=== PATIENT | female | born 1960 | race Caucasian/White ===

== ENCOUNTER 2022-10-25 15:42 | Inpatient (IN) | payer OTHER, MEDICAID ==
[~2022-10-25] VITALS: Ht 172.7 cm; Wt 136.1 kg
[2022-10-25 15:50] VITALS: BP 160/79
--- NOTE | 2022-10-25 15:58 | NUR ---
PT WAS B/B AMBULANCE AND PUT ON ROOM 1. DR. OSBORN ASSESSED PT STAT.
[2022-10-25] MEDS ORDERED: ALBUTEROL SULFATE/IPRATROPIU 3 ML SOL IH ONE ×2 (16:00)
[2022-10-25] MEDS ORDERED: methylPREDNISolone SS 125 MG/2 ML VIAL IVP ONE (16:00)
--- NOTE | 2022-10-25 16:20 | NUR ---
PT WAS MONITOR ON. SOLUMEDROL GIVE IVP.
[2022-10-25 17:04] LABS: BASOPHILS # (AUTO) 0.1 K/uL (0.00-0.22); BASOPHILS % (AUTO) 0.7 % (0.0-2.0); EOSINOPHILS # (AUTO) 0.2 K/uL (0-0.4); EOSINOPHILS % (AUTO) 2.1 % (0.0-4.0); HEMATOCRIT 36.8 % (36-48); LYMPHOCYTES # (AUTO) 4.1 K/uL (2.5-16.5); LYMPHOCYTES % (AUTO) 42.4 % (20.5-51.1); MEAN CORPUSCULAR HEMOGLOBIN 30 pg (27-31); MEAN CORPUSCULAR HGB CONC 33 g/dL (33-37); MEAN CORPUSCULAR VOLUME 92.6 fL (80-94); MONOCYTES # (AUTO) 0.6 K/uL (0.8-1.0); MONOCYTES % (AUTO) 5.8 % (1.7-9.3); NEUTROPHILS # (AUTO) 4.8 K/uL (1.8-7.7); PLATELET COUNT (AUTO) 248 K/uL (140-450); RED BLOOD CELL COUNT(AUTO) 3.97 MIL/uL (4.20-5.40); RED CELL DISTRIBUTION WIDTH 13.8 % (11.6-13.7); WHITE BLOOD COUNT (AUTO) 9.7 K/uL (4.8-10.8)
[2022-10-25 17:41] LABS: PHOSPHORUS 3.8 mg/dL (2.5-4.9)
[2022-10-25 17:46] LABS: ANION GAP 8.7 (8-16); CREATININE 1.1 mg/dL (0.6-1.3); POTASSIUM 4.3 mmol/L (3.5-5.1)
[2022-10-25 17:55] LABS: CARBON DIOXIDE 41.6 mmol/L (21-32)
[2022-10-25] MEDS ORDERED: ALBUTEROL 0.083% 2.5 MG/3 ML NEBU INH ONE (17:55)
--- NOTE | 2022-10-25 18:01 | NUR ---
LAB REPORTED CO2 41.6, GLUCOS 290. DR. LUKE NOTIFIED BEDISE.
[2022-10-25] MEDS ORDERED: HYDROcodone/APAP 5/325 MG 1 TAB TAB PO PRN (23:00)
[2022-10-25] MEDS ORDERED: POTASSIUM CHLORIDE 10 MEQ TABER PO PRN (23:00)
[2022-10-25] MEDS ORDERED: SODIUM PHOS / POTASSIUM PHOS 1 PKT PDR PO PRN (23:00)
[2022-10-25] MEDS ORDERED: DOCUSATE SODIUM 100 MG GELCAP PO PRN (23:00)
[2022-10-25] MEDS ORDERED: ACETAMINOPHEN 325 MG TAB PO PRN (23:00)
[2022-10-25] MEDS ORDERED: guaiFENesin 20 MG/ML UDC PO PRN (23:00)
[2022-10-25] MEDS ORDERED: ONDANSETRON 4 MG/2 ML VIAL IM/IVP PRN (23:00)
[2022-10-25] MEDS ORDERED: MAGNESIUM OXIDE 400 MG TAB PO PRN (23:00)
[2022-10-25] MEDS ORDERED: MORPHINE SULFATE 2 MG/ML SYR IVP PRN (23:00)
[2022-10-25] MEDS ORDERED: AZITHROMYCIN 250 MG TAB PO ONE (23:30)
[2022-10-26] MEDS ORDERED: AZITHROMYCIN 250 MG TAB ONE (02:32)
[2022-10-26] MEDS ORDERED: cefTRIAXone 1,000 MG VIAL ONE (02:32)
[2022-10-26] MEDS ORDERED: ACETAMINOPHEN (03:15)
[2022-10-26] MEDS ORDERED: NITR0.4T1 (03:15)
[2022-10-26] MEDS ORDERED: DEPAKOTE (03:15)
[2022-10-26] MEDS ORDERED: ATORVASTATIN (03:15)
[2022-10-26] MEDS ORDERED: HUMALOG KWIK PEN (03:15)
[2022-10-26] MEDS ORDERED: ALBUTEROL SULFATE (03:15)
[2022-10-26] MEDS ORDERED: LOSA25TA43 (03:15)
[2022-10-26] MEDS ORDERED: MELATONIN (03:15)
[2022-10-26] MEDS ORDERED: ONDANSETRON (03:15)
[2022-10-26] MEDS ORDERED: LEVOTHYROXINE (03:15)
[2022-10-26] MEDS ORDERED: TRAZ-343 (03:15)
[2022-10-26] MEDS ORDERED: INSU100I47 (03:15)
[2022-10-26] MEDS ORDERED: LURA60TA (03:15)
[2022-10-26] MEDS ORDERED: PREG50CA88 (03:15)
[2022-10-26] MEDS ORDERED: LIDOCAINE PATCH (03:15)
[2022-10-26] MEDS: methylPREDNISolone SS 40 MG/ML VIAL IVP SCH ×2 (05:01→21:06)
--- NOTE | 2022-10-26 07:05 | NUR ---
PT RECEIVED, CARE ASSUMED. PT LAYING IN BED ASLEEP. NOTED V/S. NO ACUTE DISTRESS NOTED. WILL CONTINUE TO MONITOR
--- NOTE | 2022-10-26 07:16 | NUR ---
Pt report given to CALLIE WILKINS. Transfer of care at this time.
--- NOTE | 2022-10-26 07:36 | NUR ---
LAB INFORMED ME OF GLUCOSE : 559. MADE DR BARCENAS AWARE. I WAS TOLD TO CONTACT DR LUKE
--- NOTE | 2022-10-26 07:40 | NUR ---
TEXT DR LUKE.
[2022-10-26 07:49] LABS: BASOPHILS % (AUTO) 0.2 % (0.0-2.0); HEMATOCRIT 35.4 % (36-48); HEMOGLOBIN 11.7 g/dL (12.0-16.0); LYMPHOCYTES # (AUTO) 1.2 K/uL (2.5-16.5); LYMPHOCYTES % (AUTO) 11.6 % (20.5-51.1); MEAN CORPUSCULAR HEMOGLOBIN 30 pg (27-31); MEAN CORPUSCULAR HGB CONC 33 g/dL (33-37); MEAN CORPUSCULAR VOLUME 91.2 fL (80-94); MONOCYTES # (AUTO) 0.1 K/uL (0.8-1.0); MONOCYTES % (AUTO) 1.1 % (1.7-9.3); NEUTROPHILS # (AUTO) 9.3 K/uL (1.8-7.7); NEUTROPHILS % (AUTO) 87.1 % (42.2-75.2); PLATELET COUNT (AUTO) 249 K/uL (140-450); RED BLOOD CELL COUNT(AUTO) 3.88 MIL/uL (4.20-5.40); RED CELL DISTRIBUTION WIDTH 13.6 % (11.6-13.7); WHITE BLOOD COUNT (AUTO) 10.7 K/uL (4.8-10.8)
[2022-10-26 08:18] LABS: ANION GAP 11.3 (8-16); CARBON DIOXIDE 38.6 mmol/L (21-32); CREATININE 1.4 mg/dL (0.6-1.3); POTASSIUM 4.9 mmol/L (3.5-5.1)
--- NOTE | 2022-10-26 09:00 | NUR ---
INFORMED TO ORDER INSULIN 12 UNITS IVP. MEDICATIONS ORDERED AND GIVEN
[2022-10-26] MEDS ORDERED: INSULIN REGULAR, HUMAN 100 UNIT/ML VIAL IVP ONE (09:15)
[2022-10-26] MEDS: AZITHROMYCIN 250 MG TAB PO SCH (09:32)
[2022-10-26] MEDS: LORATADINE 10 MG TAB PO SCH (09:32)
[2022-10-26] MEDS: PANTOPRAZOLE 40 MG TABEC PO SCH (09:32)
[2022-10-26] MEDS: MONTELUKAST SODIUM 10 MG TAB PO SCH (09:32)
--- NOTE | 2022-10-26 15:24 | NUR ---
PATIENT HAS BEEN SCREENED AND CATEGORIZED MODERATE NUTRITION RISK. PATIENT WILL BE SEEN WITHIN 3-5 DAYS OF ADMISSION. 10/28/[address]
[2022-10-26] MEDS ORDERED: hydrALAZINE 20 MG/ML VIAL IVP PRN (15:25)
[2022-10-26] MEDS ORDERED: MELATONIN 3 MG TAB PO PRN (15:25)
--- NOTE | 2022-10-26 17:00 | NUR ---
PT LAYING IN BED ANXIOUS. INFUSED NS 0.9 1 LITER. NOTED: PT HAS CANDY, SNACKS IN ROOM. INFORMED PT NOT TO EAT CANDY DUE TO HER DIABETES. PT SEEMS NON COMPLIANT. WILL CONTINUE TO MONITOR
[2022-10-26] MEDS: ALBUTEROL SULFATE/IPRATROPIU 3 ML SOL IH SCH ×2 (17:07→21:50)
--- NOTE | 2022-10-26 18:10 | NUR ---
BLOOD SUGAR 433. INFORMED DR LUKE OF BLOOD SUGAR. WILL WAIT FOR REPLY.
--- NOTE | 2022-10-26 19:15 | NUR ---
RECVD PATIENT ALERT AWAKE, ORIENTED AMBULATORY.
[2022-10-26] MEDS: ATORVASTATIN 20 MG TAB PO SCH (21:07)
[2022-10-26] MEDS: DIVALPROEX 500 MG TABEC PO SCH (21:07)
--- NOTE | 2022-10-26 21:30 | NUR ---
ACCU CHECK 569 MG /DL DR. LUKE NOTED, TO GIVE LANTUS 45UNITS SUB CUTANEOUS 2 TIMES ADAY
[2022-10-27] MEDS ORDERED: cefTRIAXone 1,000 MG VIAL ONE (00:42)
--- NOTE | 2022-10-27 01:58 | NUR ---
ACCU CHECK DONE, READS HI. DR. BARNARD NOTED AND DO HUMULOG SLIDING SCALE.
--- NOTE | 2022-10-27 02:25 | NUR ---
DR. BARNARD RESPONDED TO GIVE 20 UNITS OF HUMALOG, GIVEN , TO CHECK, IN AN HOUR TIME
[2022-10-27] MEDS: ALBUTEROL SULFATE/IPRATROPIU 3 ML SOL IH PRN ×2 (02:58→09:42)
[2022-10-27] MEDS: methylPREDNISolone SS 40 MG/ML VIAL IVP SCH ×3 (05:17→20:56)
--- NOTE | 2022-10-27 05:30 | NUR ---
ACCU CHECK 505 MG/DL NOTED BY DR. BARNARD WITH ORDER AND CARRIED OUT,
[2022-10-27] MEDS ORDERED: LEVOTHYROXINE 0.1 MG TAB ONE (06:16)
[2022-10-27] MEDS: LEVOTHYROXINE 0.075 MG TAB PO SCH (06:22)
[2022-10-27 06:41] LABS: ALBUMIN 3.1 g/dL (3.4-5.0); ANION GAP 13.3 (8-16); CARBON DIOXIDE 35.1 mmol/L (21-32); CREATININE 1.5 mg/dL (0.6-1.3); POTASSIUM 4.4 mmol/L (3.5-5.1); TOTAL BILIRUBIN 0.2 mg/dL (0.0-1.0)
--- NOTE | 2022-10-27 06:46 | NUR ---
CRITICAL VALUE , GLUCOSE 593 MG/DL,TEXTED TO DR. BARNARD
[2022-10-27 06:49] LABS: BASOPHILS % (AUTO) 0.1 % (0.0-2.0); HEMATOCRIT 34.9 % (36-48); HEMOGLOBIN 11.3 g/dL (12.0-16.0); LYMPHOCYTES % (AUTO) 9.5 % (20.5-51.1); MEAN CORPUSCULAR HEMOGLOBIN 30 pg (27-31); MEAN CORPUSCULAR HGB CONC 32 g/dL (33-37); MEAN CORPUSCULAR VOLUME 93.2 fL (80-94); MONOCYTES # (AUTO) 0.6 K/uL (0.8-1.0); NEUTROPHILS # (AUTO) 18.5 K/uL (1.8-7.7); NEUTROPHILS % (AUTO) 87.4 % (42.2-75.2); PLATELET COUNT (AUTO) 288 K/uL (140-450); RED BLOOD CELL COUNT(AUTO) 3.74 MIL/uL (4.20-5.40); RED CELL DISTRIBUTION WIDTH 13.9 % (11.6-13.7)
[2022-10-27] MEDS: ALBUTEROL SULFATE/IPRATROPIU 3 ML SOL IH SCH ×3 (07:00→19:20)
--- NOTE | 2022-10-27 07:05 | NUR ---
PT RECEIVED, CARE ASSUMED FROM MAID CLEANING COOKING ALYSON. ALYSON INFORMED ME THAT DR. INTERIANO ORDERED REGULAR INSULIN IVP. ALYSON LEDESMA WILL ORDER AND ADMINISTER MEDS. PT STABLE AT THIS TIME. WILL CONTINUE TO MONITOR
--- NOTE | 2022-10-27 07:10 | NUR ---
PT RECEIVED, CARE ASSUMED. PT LAYING IN BED ANXIOUS. UPDATED ALL TESTS AND PROCEDURES. WILL CONTINUE TO MONITOR
[2022-10-27 07:12] LABS: WHITE BLOOD COUNT (AUTO) 21.2 K/uL (4.8-10.8)
--- NOTE | 2022-10-27 07:20 | NUR ---
RESULTS BACK AND NOTED BY DR. BARNARD, WITH ORDERS
--- NOTE | 2022-10-27 07:26 | NUR ---
REPORT GIVEN TO FRANKY LEDESMA, TRANSFER OF CARE AT THIS TIME
--- NOTE | 2022-10-27 08:40 | NUR ---
Patient will be admitted to care of KEISHA. Admited to 112A. Will go to room. Belongings list completed. Report to .
--- NOTE | 2022-10-27 08:40 | NUR ---
PT TRANSPORTED TO UNIT VIA GURNEY. RECEIVED REPORT FROM ED NURSE FRANKY FOR CONTINUITY OF CARE. PT IN STABLE CONDITION. PT A/OX4, BREATHING EVEN, REGULAR, AND UNLABORED ON 2L VIA NASAL CANNULA. PT HAS EXERTIONAL SOB AFTER AMBULATING. PT IS CONTINENT OF THE BOWELS AND BLADDER, AND AMBULATORY WITHOUT ASSIST. SKIN IS INTACT. NO PAIN OR DISTRESS NOTED AT THIS TIME. ASKED ED NURSE ABOUT CRITICAL BLOOD SUGAR 593, AND INTERVENTIONS. PER ED NURSE, LAST DOSE OF INSULIN HUMALOG WAS GIVEN AT 0225, REPORTEDLY 25 UNITS. NOTHING WAS GIVEN THIS MORNING. NOTIFIED .
[2022-10-27] MEDS ORDERED: INSULIN LANTUS 100 UNITS/ML 10 ML VIAL SUBQ SCH (09:00)
--- NOTE | 2022-10-27 09:12 | NUR ---
ED [employer] [employer] ADDED ASSESSOR VALERIA CALLED CONCERNING PT'S CRITICAL BLOOD SUGAR AND LACK OF INSULIN COVERAGE. VALERIA RN REPORTED NO DOCUMENTATION ON MAR, BUT DOCUMENTATION VIA NOTES FROM [facility] NURSE. DR. BARNARD NOTIFIED.
--- NOTE | 2022-10-27 09:12 | NUR ---
AFTER TRANSFERRING PT, RECEIVED QUESTIONS FROM [facility] NURSE REGARDING INSULIN COVERAGE/INSULIN GIVEN. PT HAD CRITICAL HIGH BLOOD SUGAR DURING KEYLIN[facility]. PER [facility] NURSE DURING VERBAL HANDOFF REPORT, SHE NOTIFIED DR BARNARD, RECEIVED ORDERS AND CARRIED THEM OUT. NO ORDERS WERE PLACED AND INSULIN COVERAGE WAS NOT DOCUMENTED IN THE eMAR. ACCUCHECK NOTE/NOTES STATES 20 UNITS OF HUMALOG WERE GIVEN AT 0225. DR BARNARD NOTIFIED. KEISHA [facility] RECEIVING NURSE NOTIFIED.
--- NOTE | 2022-10-27 09:20 | NUR ---
PT IS REFUSING ABG AT THIS TIME. RN NOTIFIED. NO SOB OR RESPIRATORY DISTRESS NOTED. WILL TRY AGAIN AT A LATER TIME.
[2022-10-27] MEDS ORDERED: INSULIN LISPRO 100 UNITS/ML VIAL SUBQ SCH ×2 (09:30→14:35)
--- NOTE | 2022-10-27 09:37 | NUR ---
REASSESSED PT'S FINGERSTICK GLUCOSE. GLUCOMETER READ >600. NOTIFIED DR. BARNARD, NEW ORDER FOR ONE TIME DOSE OF 20 UNITS HUMALOG INSULIN TO BE GIVEN NOW ALONG WITH SCHEDULED 45 UNITS OF LANTUS.
[2022-10-27] MEDS: PANTOPRAZOLE 40 MG TABEC PO SCH (09:40)
[2022-10-27] MEDS: MONTELUKAST SODIUM 10 MG TAB PO SCH (09:40)
[2022-10-27] MEDS: DIVALPROEX 500 MG TABEC PO SCH ×2 (09:40→20:57)
[2022-10-27] MEDS: AZITHROMYCIN 250 MG TAB PO SCH (09:41)
[2022-10-27] MEDS: LOSARTAN 25 MG TAB PO SCH (09:41)
[2022-10-27] MEDS: LORATADINE 10 MG TAB PO SCH (09:41)
[2022-10-27] MEDS: INSULIN LANTUS 100 UNITS/ML 10 ML VIAL SUBQ SCH ×2 (09:45→20:55)
--- NOTE | 2022-10-27 10:50 | NUR ---
REASSESSED PT'S FINGERSTICK, GLUCOSE STILL >600. ORDERED REPEAT CMP TO ASSESS ANION GAP FOR POSSIBLE DKA. ORDER PLACED, NOTIFIED LAB FOR NEW DRAW.
--- NOTE | 2022-10-27 12:00 | NUR ---
PT VISUALLY ASSESSED, NO SIGNS OF PAIN OR DISTRESS NOTED AT THIS TIME.
--- NOTE | 2022-10-27 13:30 | NUR ---
CMP RELEASED, NEW GLUCOSE READING AT 567, ANION GAP DOWNTRENDED FROM 13.3 TO 12.9. ADDITIONAL 15 UNITS OF HUMALOG ORDERED TO BE GIVEN WITH 10 UNITS PER SLIDING SCALE. ACCUCHECKS CHANGED TO Q4HRS.
[2022-10-27 14:12] LABS: ALBUMIN 2.7 g/dL (3.4-5.0); ANION GAP 12.9 (8-16); CARBON DIOXIDE 33.8 mmol/L (21-32); CREATININE 1.7 mg/dL (0.6-1.3); POTASSIUM 4.7 mmol/L (3.5-5.1); TOTAL BILIRUBIN 0.1 mg/dL (0.0-1.0)
[2022-10-27] MEDS: INSULIN LISPRO SLIDING SCALE 100 UNITS/ML VIAL SUBQ PRN ×3 (14:41→20:53)
--- NOTE | 2022-10-27 15:00 | NUR ---
PT VISUALLY ASSESSED, NO SIGNS OF PAIN OR DISTRESS NOTED AT THIS TIME.
--- NOTE | 2022-10-27 16:00 | NUR ---
REASSESSED PT'S FINGERSTICK GLUCOSE, NEW READING 458. NOTIFIED DR. BARNARD, ADDITIONAL 5 UNITS OF HUMALOG ORDERED TO BE GIVEN WITH 10 UNITS OF HUMALOG PER SLIDING SCALE.
[2022-10-27] MEDS: BLOOD GLUCOSE MONITORING 1 DEV DEV FS SCH ×2 (16:08→20:57)
[2022-10-27] MEDS ORDERED: BLOOD GLUCOSE MONITORING 1 DEV DEV FS SCH (16:30)
--- NOTE | 2022-10-27 18:00 | NUR ---
PT VISUALLY ASSESSED, NO SIGNS OF PAIN OR DISTRESS NOTED AT THIS TIME.
--- NOTE | 2022-10-27 19:20 | NUR ---
ENDORSED PT TO [facility] NURSE MAJOR FOR CONTINUITY OF CARE. PT IN STABLE CONDITION.
--- NOTE | 2022-10-27 19:25 | NUR ---
RECEIVED REPORT FROM DAY SHIFT CALLIE WELLS FOR CONTINUITY OF CARE. PT IS AAOX4 ON NC 2L. PT NOT IN AN RESPIRATORY DISTRESS. PT HAS LEFT HAND 20 GAUGE SALINE LOCK. PT RESTING IN BED. CALL LIGHT WITHIN REACH. WILL CONTINUE TO MONITOR THE PT.
--- NOTE | 2022-10-27 19:30 | NUR ---
PT DID NOT GET BREATHING TX, PT REFUSED TX WANTED TO GO BACK TO SLEEP.
[2022-10-27 20:00] VITALS: BP 114/57
[2022-10-27] MEDS: ATORVASTATIN 20 MG TAB PO SCH (20:56)
--- NOTE | 2022-10-27 21:03 | NUR ---
SCHEDULE MEDICATIONS GIVEN. NO ADVERSE REACTION NOTED. WILL CONTINUE TO MONITOR THE PT.
[2022-10-28] VITALS: BP 101/44
[2022-10-28] MEDS: INSULIN LISPRO SLIDING SCALE 100 UNITS/ML VIAL SUBQ PRN ×7 (00:23→20:48)
--- NOTE | 2022-10-28 00:30 | NUR ---
OBSERVED PT. PT IS SLEEPING. PT NOT IN ANY ACUTE DISTRESS. VISIBLE RISE AND CHEST FALL. WILL CONTINUE TO MONITOR THE PT.
[2022-10-28] MEDS: BLOOD GLUCOSE MONITORING 1 DEV DEV FS SCH ×6 (00:35→20:45)
--- NOTE | 2022-10-28 02:45 | NUR ---
OBSERVED PT. PT IS SLEEPING. PT NOT IN ANY ACUTE DISTRESS. VISIBLE RISE AND CHEST FALL. WILL CONTINUE TO MONITOR THE PT.
[2022-10-28 04:00] VITALS: BP 119/72
--- NOTE | 2022-10-28 04:50 | NUR ---
PT BLOOD GLUCOSE OF 320. COVERED WITH 8 UNITS OF INSULIN.
[2022-10-28] MEDS: methylPREDNISolone SS 40 MG/ML VIAL IVP SCH ×3 (05:40→22:04)
[2022-10-28] MEDS: LEVOTHYROXINE 0.075 MG TAB PO SCH (05:40)
--- NOTE | 2022-10-28 05:50 | NUR ---
SCHEDULE SOLU-MEDROL GIVEN. PT STATES SHE VOIDED ONCE AND HAD 1 BM YESTERDAY. PT AMBULATED TO THE RESTROOM INDEPENDENTLY. CALL LIGHT WITHIN REACH. WILL CONTINUE TO MONITOR THE PT.
[2022-10-28] MEDS: ALBUTEROL SULFATE/IPRATROPIU 3 ML SOL IH SCH ×3 (07:10→19:37)
--- NOTE | 2022-10-28 07:15 | NUR ---
ENDORSED PT TO [facility] NURSE REICH FOR CONTINUITY OF CARE. PT IN STABLE CONDITION. Addendum: 10/28/22 at 1935 by Irasema Vogt RN ENTERED TIME INCORRECTLY.
--- NOTE | 2022-10-28 07:15 | NUR ---
ENDORSED PT TO DAY SHIFT RN FOR CONTINUITY OF CARE. PT IS STABLE.
--- NOTE | 2022-10-28 07:15 | NUR ---
RECEIVED REPORT FROM [facility] MAJOR FOR CONTINUITY OF CARE. PT IS CURRENTLY SLEEPING, A/OX4. BREATHING IS EVEN, REGULAR, AND UNLABORED ON 2L VIA NASAL CANNULA. PT IS CONTINENT OF THE BOWEL AND BLADDER, AND AMBULATORY WITHOUT ASSISTANCE. PT'S SKIN IS INTACT. PER [facility], GLUCOSE LEVELS WERE REPORTED DOWNTRENDING. NO SIGNS OF PAIN OR DISTRESS NOTED AT THIS TIME.
[2022-10-28 07:24] LABS: ANION GAP 9.2 (8-16); CARBON DIOXIDE 39.4 mmol/L (21-32); POTASSIUM 4.6 mmol/L (3.5-5.1)
[2022-10-28 07:28] LABS: BASOPHILS % (AUTO) 0.2 % (0.0-2.0); HEMOGLOBIN 11.2 g/dL (12.0-16.0); LYMPHOCYTES # (AUTO) 2.3 K/uL (2.5-16.5); LYMPHOCYTES % (AUTO) 12.5 % (20.5-51.1); MEAN CORPUSCULAR HEMOGLOBIN 30 pg (27-31); MEAN CORPUSCULAR HGB CONC 33 g/dL (33-37); MEAN CORPUSCULAR VOLUME 92.1 fL (80-94); MONOCYTES # (AUTO) 0.5 K/uL (0.8-1.0); MONOCYTES % (AUTO) 2.6 % (1.7-9.3); NEUTROPHILS # (AUTO) 15.9 K/uL (1.8-7.7); NEUTROPHILS % (AUTO) 84.7 % (42.2-75.2); PLATELET COUNT (AUTO) 285 K/uL (140-450); RED BLOOD CELL COUNT(AUTO) 3.69 MIL/uL (4.20-5.40); RED CELL DISTRIBUTION WIDTH 13.9 % (11.6-13.7); WHITE BLOOD COUNT (AUTO) 18.8 K/uL (4.8-10.8)
[2022-10-28 08:00] VITALS: BP 137/59
[2022-10-28] MEDS: LORATADINE 10 MG TAB PO SCH (08:44)
[2022-10-28] MEDS: PANTOPRAZOLE 40 MG TABEC PO SCH (08:44)
[2022-10-28] MEDS: MONTELUKAST SODIUM 10 MG TAB PO SCH (08:44)
[2022-10-28] MEDS: DIVALPROEX 500 MG TABEC PO SCH ×2 (08:45→21:42)
[2022-10-28] MEDS: AZITHROMYCIN 250 MG TAB PO SCH (08:45)
--- NOTE | 2022-10-28 08:45 | NUR ---
PT DID NOT HAVE NASAL CANNULA IN PLACE AND CURRENTLY SLEEPING. ON ROOM AIR, PT SPO2 READ AT 81%. PLACED NASAL CANNULA, PT SPO2 RETURNED TO 94%. ASKED PT WHY SHE HAD HER O2 OFF, SHE STATED THE RT TOOK IT OFF AND SAID IT WAS OKAY TO KEEP IT OFF. PT HAS HX OF HOME O2 USE.
[2022-10-28] MEDS: LOSARTAN 25 MG TAB PO SCH (08:46)
[2022-10-28] MEDS: INSULIN LANTUS 100 UNITS/ML 10 ML VIAL SUBQ SCH ×2 (08:48→21:43)
--- NOTE | 2022-10-28 10:00 | NUR ---
VISUALLY ASSESSED PT, NO SIGNS OF PAIN OR DISTRESS NOTED AT THIS TIME.
[2022-10-28 12:00] VITALS: BP 133/59
--- NOTE | 2022-10-28 12:44 | NUR ---
NOTIFIED DR. BARNARD ABOUT CRITICAL GLUCOSE FROM 1200 ACCUCHECK 472. GAVE 10 UNITS PER SLIDING SCALE. AWAITING ADDITIONAL ORDERS.
[2022-10-28] MEDS ORDERED: INSULIN LISPRO 100 UNITS/ML VIAL SUBQ SCH (14:00)
--- NOTE | 2022-10-28 14:00 | NUR ---
VISUALLY ASSESSED PT, NO SIGNS OF PAIN OR DISTRESS NOTED AT THIS TIME.
--- NOTE | 2022-10-28 14:10 | NUR ---
NEW ORDERS FOR ONE TIME DOSE OF 15 UNITS OF HUMALOG TO BE GIVEN. REASSESSED FINGERSTICK GLUCOSE, NOW READING AT 431. GAVE 15 UNITS ORDERED.
[2022-10-28 16:00] VITALS: BP 126/66
--- NOTE | 2022-10-28 16:00 | NUR ---
VISUALLY ASSESSED PT, NO SIGNS OF PAIN OR DISTRESS NOTED AT THIS TIME.
--- NOTE | 2022-10-28 18:00 | NUR ---
VISUALLY ASSESSED PT, NO SIGNS OF PAIN OR DISTRESS NOTED AT THIS TIME.
--- NOTE | 2022-10-28 19:07 | NUR ---
ENDORSED PT TO [facility] NURSE DAMIR FOR CONTINUITY OF CARE. PT IN STABLE CONDITION.
--- NOTE | 2022-10-28 19:08 | NUR ---
RECEIVED REPORT FROM DAY SHIFT NURSE NAYE FOR CONTINUITY OF CARE. PT AWAKE IN BED. A&O4, ABLE TO MAKE NEEDS KNOWN. RESPIRATIONS EVEN AND UNLABORED ON 2L NC. NO DISTRESS NOTED. NO COMPLAINTS OF PAIN. SKIN IS INTACT, WARM AND DRY TO TOUCH. CONTINENT TO BOWEL AND BLADDER, CAN GO TO THE REST ROOM WITHOUT ASSIST. BLOOD GLUCOSE CHECK Q4, LAST BG AT 340'S. CALL LIGHT WITHIN REACH. SAFETY PRECAUTIONS IN PLACE.
[2022-10-28 20:00] VITALS: BP 122/53
--- NOTE | 2022-10-28 20:45 | NUR ---
SLIDING SCALE INSULIN ADMINISTERED FOR BS 344.
[2022-10-28] MEDS: ATORVASTATIN 20 MG TAB PO SCH (21:41)
--- NOTE | 2022-10-28 21:43 | NUR ---
DUE MEDS ADMINISTERED. PT TEACHING ABOUT MEDS GIVEN. PT VERBALIZED UNDERSTANDING.
--- NOTE | 2022-10-28 22:04 | NUR ---
SCHEDULED IV MED GIVEN BY CALLIE KEATING. PT TOLERATED WELL.
[2022-10-29] MEDS: BLOOD GLUCOSE MONITORING 1 DEV DEV FS SCH ×6 (00:56→20:39)
--- NOTE | 2022-10-29 00:56 | NUR ---
BLOOD SUGAR CHECK DONE. SLIDING SCALE INSULIN ADMINISTERED. SPUTUM SPECIMEN COLLECTED AND SENT TO LAB.
[2022-10-29] MEDS: INSULIN LISPRO SLIDING SCALE 100 UNITS/ML VIAL SUBQ PRN ×6 (00:57→20:41)
--- NOTE | 2022-10-29 01:11 | NUR ---
IV ABX ADMINISTERED BY CALLIE KEATING. NO ADVERSE REACTION NOTED.
[2022-10-29 01:54] LABS: APPEARANCE,URINE CLEAR (CLEAR); BILIRUBIN,URINE NEGATIVE (NEGATIVE); BLOOD, URINE NEGATIVE (NEGATIVE); COLOR,URINE YELLOW (YELLOW); LEUKOCYTE ESTERASE ,URINE NEGATIVE (NEGATIVE); NITRITE, URINE NEGATIVE (NEGATIVE); UGLUCOSE 3+ (NEGATIVE)
[2022-10-29 04:00] VITALS: BP 125/54
[2022-10-29] MEDS: methylPREDNISolone SS 40 MG/ML VIAL IVP SCH ×3 (05:20→21:00)
--- NOTE | 2022-10-29 06:05 | NUR ---
CLEANED AND CHANGED PT DIAPER. HAD BM. PT TOLERATED WELL. PT REMAINED CLEAN AND DRY THROUGHOUT SHIFT. NO C/O OF PAIN. NO DISTRESS NOTED.
[2022-10-29] MEDS: LEVOTHYROXINE 0.075 MG TAB PO SCH (06:23)
[2022-10-29] MEDS: ALBUTEROL SULFATE/IPRATROPIU 3 ML SOL IH SCH ×2 (07:00→13:00)
--- NOTE | 2022-10-29 07:10 | NUR ---
ASSUMED CONTINUITY OF CARE. AWAKE, ALERT, AND ORIENTED X4. NO SOB, NOTED. KEEP COMFORTABLE ON BED. EXPLAINED DIAGNOSIS, PLAN OF CARE, PAIN MANAGEMENT TEACHING, USE OF CALL LIGHT/BED/TV/BATHROOM. VERBALIZED UNDERSTANDING. CALL LIGHT WITHIN REACH.
--- NOTE | 2022-10-29 07:27 | NUR ---
ENDORSED PT TO DAY SHIFT NURSE BRAYAN FOR CONTINUITY OF CARE. ALL NEEDS MET THROUGHOUT SHIFT. PT IS STABLE. Addendum: 10/29/22 at 0730 by Murtaza Gonzáles LVN ENDORSED TO DAY SHIFT NURSE REENA.
--- NOTE | 2022-10-29 07:27 | NUR ---
ENDORSED PT TO DAY SHIFT NURSE REENA FOR CONTINUITY OF CARE. ALL NEEDS MET THROUGHOUT SHIFT. PT IS STABLE.
[2022-10-29 08:00] VITALS: BP 146/64
--- NOTE | 2022-10-29 08:22 | NUR ---
PT EATING BREAKFAST - REFUSED NEB - WILL GIVE PRN LATER
[2022-10-29] MEDS: AZITHROMYCIN 250 MG TAB PO SCH (08:26)
[2022-10-29] MEDS: DIVALPROEX 500 MG TABEC PO SCH ×2 (08:26→21:36)
[2022-10-29] MEDS: PANTOPRAZOLE 40 MG TABEC PO SCH (08:26)
[2022-10-29] MEDS: MONTELUKAST SODIUM 10 MG TAB PO SCH (08:26)
[2022-10-29] MEDS: LOSARTAN 25 MG TAB PO SCH (08:26)
[2022-10-29] MEDS: LORATADINE 10 MG TAB PO SCH (08:27)
[2022-10-29] MEDS: INSULIN LANTUS 100 UNITS/ML 10 ML VIAL SUBQ SCH ×2 (08:31→21:41)
[2022-10-29 12:35] LABS: ANION GAP 10.4 (8-16); CARBON DIOXIDE 37.8 mmol/L (21-32); CREATININE 1.1 mg/dL (0.6-1.3); POTASSIUM 5.2 mmol/L (3.5-5.1)
[2022-10-29 12:40] LABS: BASOPHILS % (AUTO) 0.1 % (0.0-2.0); HEMATOCRIT 35.4 % (36-48); HEMOGLOBIN 11.7 g/dL (12.0-16.0); LYMPHOCYTES # (AUTO) 2.5 K/uL (2.5-16.5); LYMPHOCYTES % (AUTO) 17.5 % (20.5-51.1); MEAN CORPUSCULAR HEMOGLOBIN 30 pg (27-31); MEAN CORPUSCULAR HGB CONC 33 g/dL (33-37); MEAN CORPUSCULAR VOLUME 91.1 fL (80-94); MONOCYTES # (AUTO) 0.6 K/uL (0.8-1.0); NEUTROPHILS % (AUTO) 78.4 % (42.2-75.2); PLATELET COUNT (AUTO) 287 K/uL (140-450); RED BLOOD CELL COUNT(AUTO) 3.89 MIL/uL (4.20-5.40); RED CELL DISTRIBUTION WIDTH 14.3 % (11.6-13.7); WHITE BLOOD COUNT (AUTO) 14.1 K/uL (4.8-10.8)
--- NOTE | 2022-10-29 12:45 | NUR ---
WENT TO BATHROOM WITHOUT ASSISTANCE. TOLERATED WELL. NO SOB, NOTED. ASKED TO CALL NURSE IF NEEDS HELP. VERBALIZED UNDERSTANDING.
--- NOTE | 2022-10-29 13:28 | NUR ---
CALLED DR. BURNS AT INFORMED OF PT. LATEST LAB RESULTS K 5.2, AND WBC 14.1. ALSO VERIFIED D/C ORDER WITH DR. BURNS AND ACCORDING TO HER, D/C ORDER WAS ALREADY CANCELLED. GOT T.O. FOR HIGH K 5.2 READ BACK AND VERIFIED. INFORMED [facility] ABOUT MD LATEST MED ORDER AND CANCELLATION OF D/C ORDER.
[2022-10-29] MEDS ORDERED: SODIUM ZIRCONIUM CYCLOSILICATE 10 GM POWD.PACK PO SCH (13:32)
[2022-10-29 16:00] VITALS: BP 135/77
--- NOTE | 2022-10-29 19:20 | NUR ---
REPORT GIVEN TO [facility] NURSE. IN STABLE CONDITION.
--- NOTE | 2022-10-29 19:21 | NUR ---
RECEIVED REPORT FROM DAY SHIFT NURSE CARMEN FOR CONTINUITY OF CARE. PT AWAKE IN BED. A&O4, ABLE TO MAKE NEEDS KNOWN. AMBULATORY WITHOUT ASSIST. RESPIRATIONS EVEN AND UNLABORED ON 2L NC. NO DISTRESS NOTED. NO COMPLAINTS OF PAIN. SKIN IS INTACT, WARM AND DRY TO TOUCH. CONTINENT TO BOWEL AND BLADDER. BLOOD GLUCOSE CHECK Q4, LAST BG AT 320'S. CALL LIGHT WITHIN REACH. SAFETY PRECAUTIONS IN PLACE.
[2022-10-29 20:00] VITALS: BP 118/60
--- NOTE | 2022-10-29 20:41 | NUR ---
BLOOD SUGAR CHECK DONE. SLIDING SCALE INSULIN ADMINISTERED FOR BS 348. PT ASYMPTOMATIC. NO DISTRESS NOTED.
[2022-10-29] MEDS: ATORVASTATIN 20 MG TAB PO SCH (21:36)
--- NOTE | 2022-10-29 21:36 | NUR ---
ADMINISTERED DUE MEDS. PT TEACHING MADE. PT VERBALIZED UNDERSTANDING. PT TOLERATED WELL.
--- NOTE | 2022-10-29 22:03 | NUR ---
IV MED ADMINISTERED BY CALLIE CONTI. PT TOLERATED WELL.
[2022-10-30] MEDS: BLOOD GLUCOSE MONITORING 1 DEV DEV FS SCH ×3 (00:17→08:54)
[2022-10-30] MEDS: INSULIN LISPRO SLIDING SCALE 100 UNITS/ML VIAL SUBQ PRN ×2 (00:18→04:38)
--- NOTE | 2022-10-30 00:18 | NUR ---
SLIDING SCALE INSULIN ADMINISTERED FOR BS 350. CALLIE CONTI GAVE SCHEDULED IV ABX. NO ADVERSE REACTION NOTED.
[2022-10-30 04:00] VITALS: BP 120/53
--- NOTE | 2022-10-30 04:38 | NUR ---
SLIDING SCALE INSULIN ADMINISTERED FOR BS 288.
[2022-10-30] MEDS: methylPREDNISolone SS 40 MG/ML VIAL IVP SCH (05:00)
[2022-10-30] MEDS: LEVOTHYROXINE 0.075 MG TAB PO SCH (06:09)
[2022-10-30 06:58] LABS: ANION GAP 10.2 (8-16); CARBON DIOXIDE 38.7 mmol/L (21-32); POTASSIUM 4.9 mmol/L (3.5-5.1)
[2022-10-30 07:13] LABS: BASOPHILS % (AUTO) 0.3 % (0.0-2.0); EOSINOPHILS % (AUTO) 0.1 % (0.0-4.0); HEMATOCRIT 36.3 % (36-48); HEMOGLOBIN 12.1 g/dL (12.0-16.0); LYMPHOCYTES # (AUTO) 2.1 K/uL (2.5-16.5); LYMPHOCYTES % (AUTO) 19.6 % (20.5-51.1); MEAN CORPUSCULAR HEMOGLOBIN 30 pg (27-31); MEAN CORPUSCULAR HGB CONC 33 g/dL (33-37); MEAN CORPUSCULAR VOLUME 90.5 fL (80-94); MONOCYTES # (AUTO) 0.3 K/uL (0.8-1.0); MONOCYTES % (AUTO) 2.8 % (1.7-9.3); NEUTROPHILS # (AUTO) 8.4 K/uL (1.8-7.7); NEUTROPHILS % (AUTO) 77.2 % (42.2-75.2); PLATELET COUNT (AUTO) 289 K/uL (140-450); RED BLOOD CELL COUNT(AUTO) 4.01 MIL/uL (4.20-5.40); WHITE BLOOD COUNT (AUTO) 10.9 K/uL (4.8-10.8)
--- NOTE | 2022-10-30 07:20 | NUR ---
ENDORSED PT TO DAY SHIFT NURSE MAYCO FOR CONTINUITY OF CARE. ALL NEEDS MET THROUGHOUT SHIFT. PT IS STABLE.
[2022-10-30 08:00] VITALS: BP 125/49
[2022-10-30] MEDS: INSULIN LANTUS 100 UNITS/ML 10 ML VIAL SUBQ SCH (08:57)
[2022-10-30] MEDS ORDERED: predniSONE 20 MG TAB PO SCH (09:00)
[2022-10-30] MEDS: LORATADINE 10 MG TAB PO SCH (09:02)
[2022-10-30] MEDS: MONTELUKAST SODIUM 10 MG TAB PO SCH (09:02)
[2022-10-30] MEDS: DIVALPROEX 500 MG TABEC PO SCH (09:03)
[2022-10-30] MEDS: AZITHROMYCIN 250 MG TAB PO SCH (09:03)
[2022-10-30] MEDS: LOSARTAN 25 MG TAB PO SCH (09:04)
[2022-10-30] MEDS: PANTOPRAZOLE 40 MG TABEC PO SCH (09:05)
[2022-10-30] MEDS ORDERED: MONT10TA35 PO (09:13)
[2022-10-30] MEDS ORDERED: LEVO-481 PO (09:15)
[2022-10-30] MEDS ORDERED: PRED20TA5 PO (09:16)
[2022-10-30] MEDS ORDERED: ALBU0.0912 INH (09:17)
--- NOTE | 2022-10-30 12:34 | NUR ---
[facility] AND FRONT LOBBY CALL NURSE TO WHEEL PATIENT OUT. DISCHARGE INSTRUCTION GIVEN, DISCHARGE CONSENT SIGN, IV ACCESS & WRIST BAND REMOVED BEFORE PATIENT IS ABLE TO DRESS HERSELF AND GETTING READY TO BE WHEEL OUT. AT THE TIME OF DISCHARGE, PATIENT STABLE WITH NO ACUTE DISTRESS NOTED.
[2022-12-30] MEDS ORDERED: ONDA-188 PO (01:25)
[2022-12-30] MEDS ORDERED: ATOR20TA PO (01:25)
[2022-12-30] MEDS ORDERED: NITR0.4T2 SL (01:25)
[2022-12-30] MEDS ORDERED: MELA10TA21 PO (01:25)
[2022-12-30] MEDS ORDERED: LURA60TA PO (01:25)
[2022-12-30] MEDS ORDERED: LOSA100T1 PO (01:25)
[2022-12-30] MEDS ORDERED: INSU-1165 SQ (01:25)
[2022-12-30] MEDS ORDERED: DEXT-430 PO (01:25)
[2022-12-30] MEDS ORDERED: AZIT250T3 PO (01:25)
[2022-12-30] MEDS ORDERED: LEVO0.155 PO (01:25)
[2022-12-30] MEDS ORDERED: ACET-10509 PO (01:25)
[2022-12-30] MEDS ORDERED: DIVA500T1 PO (01:25)
[2022-12-30] MEDS ORDERED: NIRM1TAB PO (01:25)
[2022-12-30] MEDS ORDERED: TRAZ-343 PO (01:29)
[2022-12-30] MEDS ORDERED: INSU100I47 SQ (01:29)
[2022-12-30] MEDS ORDERED: PREG50CA88 PO (01:29)
[2023-01-03] MEDS ORDERED: GLYB5TAB14 PO (09:06)
[2023-01-03] MEDS ORDERED: PRON INH (09:06)
[2023-01-03] MEDS ORDERED: LANTUS SUBQ (09:06)
[2023-01-03] MEDS ORDERED: METF-346 PO (09:06)
[2023-01-03] MEDS ORDERED: METH4TAB1 PO (09:06)
[2023-01-03] MEDS ORDERED: ROC2I IV (12:18)
[2023-01-03] MEDS ORDERED: AZIT250T4 PO (12:18)
== END 2022-10-30 12:13 | disposition home or self-care (01) | DRG 871 ==
LOC: MED 15:42 → MTU 18:47
PROVIDERS: ADMIT Hospitalist; ATTEND Hospitalist
DX: A41.9 Sepsis, unspecified organism (principal); J18.9 Pneumonia, unspecified organism; J96.21 Acute and chronic respiratory failure with hypoxia; J96.22 Acute and chronic respiratory failure with hypercapnia; J44.1 Chronic obstructive pulmonary disease with (acute) exacerbation; N17.9 Acute kidney failure, unspecified; Z68.42 Body mass index [BMI] 45.0-49.9, adult; Z20.822 Contact with and (suspected) exposure to COVID-19; F17.200 Nicotine dependence, unspecified, uncomplicated; G47.00 Insomnia, unspecified; E78.5 Hyperlipidemia, unspecified; E03.9 Hypothyroidism, unspecified; E66.01 Morbid (severe) obesity due to excess calories; I12.9 Hypertensive chronic kidney disease with stage 1 through stage 4 chronic kidney disease, or unspecified chronic kidney disease; D72.829 Elevated white blood cell count, unspecified; E11.22 Type 2 diabetes mellitus with diabetic chronic kidney disease; N18.9 Chronic kidney disease, unspecified; Z88.8 Allergy status to other drugs, medicaments and biological substances; Z79.4 Long term (current) use of insulin
CPT/HCPCS: 36415; 36600; 71045; 80048; 80053; 81003; 82948; 83036; 83735; 84100; 85025; 87081; 87086; 87205; 93005; 94640; 96374; 99291; J0696; J1644; J1815; J2920; J2930; J7060; J7512; J7613; Q0092

== ENCOUNTER 2023-02-01 19:06 | Emergency (ER) | payer OTHER, MEDICAID ==
[~2023-02-01] VITALS: Ht 167.6 cm; Wt 141.5 kg
[~2023-02-01 19:06] MED LIST: ACET-10509 PO; ALBU0.0912 INH; ATOR20TA PO; AZIT250T4 PO; DEXT-430 PO; DIVA500T1 PO; GLYB5TAB14 PO; LANTUS SUBQ; LEVO0.155 PO; LOSA100T2 PO; LURA60TA PO; MELA10TA21 PO; METF-346 PO; METH4TAB1 PO; NITR0.4T2 SL; ONDA-188 PO; PREG50CA88 PO; PRON INH; ROC2I IV; TRAZ-343 PO
[2023-02-01 19:16] VITALS: BP 162/86
[2023-02-01] MEDS ORDERED: NACL 0.9% 1,000 ML IV SCH (19:25)
[2023-02-01] MEDS ORDERED: ONDANSETRON 4 MG/2 ML VIAL IVP ONE (19:25)
--- NOTE | 2023-02-01 19:45 | NUR ---
PT RC'D IN BED 6, PT LEONEL GARCIAS RUN FROM [facility] C/O N/D SINCE THIS AM. PT ALSO STATES THAT SHE HAS NOT BEEN ABLE TO KEEP ANY FLUIDS DOWN TODAY. PMH: ASTHMA
--- NOTE | 2023-02-01 19:56 | NUR ---
Dr. Acuna examining patient.
[2023-02-01 20:03] LABS: BASOPHILS % (AUTO) 0.5 % (0.0-2.0); EOSINOPHILS # (AUTO) 0.2 K/uL (0-0.4); EOSINOPHILS % (AUTO) 1.9 % (0.0-4.0); HEMATOCRIT 36.2 % (36-48); HEMOGLOBIN 12.1 g/dL (12.0-16.0); LYMPHOCYTES % (AUTO) 11.1 % (20.5-51.1); MEAN CORPUSCULAR HEMOGLOBIN 30 pg (27-31); MEAN CORPUSCULAR HGB CONC 33 g/dL (33-37); MEAN CORPUSCULAR VOLUME 88.5 fL (80-94); MONOCYTES # (AUTO) 0.6 K/uL (0.8-1.0); MONOCYTES % (AUTO) 6.3 % (1.7-9.3); NEUTROPHILS % (AUTO) 80.2 % (42.2-75.2); PLATELET COUNT (AUTO) 264 K/uL (140-450); RED BLOOD CELL COUNT(AUTO) 4.09 MIL/uL (4.20-5.40); WHITE BLOOD COUNT (AUTO) 8.7 K/uL (4.8-10.8)
[2023-02-01 20:18] LABS: ALBUMIN 3.6 g/dL (3.4-5.0); ANION GAP 9.5 (8-16); CARBON DIOXIDE 34.9 mmol/L (21-32); CREATININE 1.2 mg/dL (0.6-1.3); POTASSIUM 4.4 mmol/L (3.5-5.1); TOTAL BILIRUBIN 0.5 mg/dL (0.0-1.0)
[2023-02-01 20:45] LABS: APPEARANCE,URINE CLEAR (CLEAR); BILIRUBIN,URINE NEGATIVE (NEGATIVE); BLOOD, URINE NEGATIVE (NEGATIVE); COLOR,URINE YELLOW (YELLOW); LEUKOCYTE ESTERASE ,URINE NEGATIVE (NEGATIVE); NITRITE, URINE NEGATIVE (NEGATIVE); PH,URINE 5.5 (5.0-9.0); UGLUCOSE 3+ (NEGATIVE)
[2023-02-01] MEDS ORDERED: NACL 0.9% 1,000 ML IV ONE (21:00)
[2023-02-01] MEDS ORDERED: LOPE-289 PO (21:22)
[2023-02-01] MEDS ORDERED: ONDA8TAB87 PO (21:22)
[2023-02-01 22:00] VITALS: BP 140/80
--- NOTE | 2023-02-01 22:00 | NUR ---
Patient discharged with v/s stable. Written and verbal after care instructions given and explained. Patient alert, oriented and verbalized understanding of instructions. Wheel Chair Assisted with to halfway. All questions addressed prior to discharge. ID band removed. Patient advised to follow up with PMD. Rx of IMODIUM, ZOFRAN given. Patient educated on indication of medication including possible reaction and side effects. Opportunity to ask questions provided and answered.
== END 2023-02-01 22:00 | disposition home or self-care (01) ==
LOC: MED 19:06
DX: R19.7 Diarrhea, unspecified (principal); J44.9 Chronic obstructive pulmonary disease, unspecified; E11.9 Type 2 diabetes mellitus without complications; I10 Essential (primary) hypertension; Z86.69 Personal history of other diseases of the nervous system and sense organs; Z79.899 Other long term (current) drug therapy; Z79.1 Long term (current) use of non-steroidal anti-inflammatories (NSAID); Z79.2 Long term (current) use of antibiotics; Z88.8 Allergy status to other drugs, medicaments and biological substances
CPT/HCPCS: 36415; 80053; 81003; 83690; 85025; 96361; 96374; 99283; J2405; J7030